=== PATIENT | female | born 2000 | race Two or more races ===

== ENCOUNTER → 2025-02-25 | Emergency (ER) | payer OTHER ==
[~2025-02-25] VITALS: Ht 165.1 cm; Wt 86.2 kg
[~2025-02-25] MED LIST: TRAMADOL HCL 50 MG TABLET PO STA
== END | disposition home or self-care (01) ==
LOC: ER 12:19
DX: S69.82XA Other specified injuries of left wrist, hand and finger(s), initial encounter (principal); W18.39XA Other fall on same level, initial encounter; Y93.89 Activity, other specified; Y92.832 Beach as the place of occurrence of the external cause